=== PATIENT | female | born 1995 | race African-American/Black ===

== ENCOUNTER 2016-08-22 13:59 | Emergency (ER) | payer OTHER ==
[~2016-08-22] VITALS: Ht 156.8 cm; Wt 43.5 kg
[2016-08-22 14:04] VITALS: TEMP 36.6; Ht 156.8 cm; Wt 43.5 kg
[2016-08-22 15:31] LABS: URINE APPEARANCE CLOUDY (CLEAR); URINE COLOR DK YELLOW; URINE EPITHELIAL CELL AUTO >30 /lpf (0-5); URINE NITRITE NEG (NEG); URINE PH 5.5 (4.5-7.5); URINE SPECIFIC GRAVITY 1.037 (1.000-1.030); UROBILINOGEN NEG (NEG); ZZUR CULT IF INDIC CLEAN CATCH YES
[2016-08-22 15:33] LABS: MANUAL MICROSCOPIC REQUIRED? NO; REVIEW REQ? YES
[2016-08-22 15:34] LABS: URINE BILIRUBIN NEG (NEG)
[2016-08-22 15:45] LABS: URINE MUCUS PRESENT (NONE PRSENT)
[2016-08-22 16:11] LABS: PREG INTERNAL NEGATIVE QC NEG CLEAR BACKGROUND; PREG INTERNAL POSITIVE QC POS CONTROL LINE
[2016-08-22] MEDS ORDERED: ACYC-251 PO (16:18)
[2016-08-22 16:44] VITALS: BP 111/85; PULSE 85; O2SAT 100
--- NOTE | 2016-08-22 22:24 | EMERGENCY ROOM VISIT NOTE ---
History Report prepared by [employer]: Radha Tay Under the Supervision of: Dr. Nathanael Best D.O. First contact with patient: 14:50 Chief Complaint: VAGINAL DISCHARGE Stated Complaint: SWOLLEN VAGINA, RED FLAT BUMPS, SEVERE PAIN History of Present Illness The patient is a 21 year old female who presents to the Emergency Room with complaints of a persistent vaginal rash that began 2 days ago. The patient notes that she had developed a rash in the vaginal area 2 days after having sexual intercourse 2 week ago. She had STD testing at [facility], which was negative, although they were suspicious of herpes. Her rash resolved in about 2 days. The patient had sexual intercourse 3 days ago. Afterwards, she noticed some discomfort and pain in the area. The following day, she noticed vesicles that have since turned into ulcers around her vagina. She notes that she has increased pain with walking and when urine makes contact with the rash. The patient's sexual partner does not have any rashes or STDs. Her last menstrual period was 2 weeks ago. She is not on control. Denies abnormal vaginal discharge or bleeding. Pt denies headache, change in vision, fevers, chest pain , shortness of breath, nausea, vomiting, diarrhea, and melena. Source of History: patient Onset: 2 days ago Position: other () Quality: other (ulcerations) Timing: other (persistent) Associated Symptoms: No SOB, No chest pain, No diarrhea, No fevers, No headache, No melena, No nausea, No vomiting Review of Systems See HPI for pertinent positives & negatives. A total of 10 systems reviewed and were otherwise negative. Past Medical & Surgical Medical Problems: (1) Asthma (2) Bronchitis Social History Smoking Status: Never Smoker Marital Status: in relationship Housing Status: lives with roommate Occupation Status: [employer] student Current/Historical Medications Scheduled PRN Acyclovir (Zovirax), 800 MG PO 3 times daily PRN for vaginal lary/lesions Allergies Coded Allergies: Penicillins (Verified Allergy, Intermediate, rash, 08/22/16) Sulfa Antibiotics (Verified Allergy, Intermediate, rash, 08/22/16) Physical Exam Vital Signs Date Time Temp Pulse Resp B/P Pulse Ox O2 Delivery O2 Flow Rate FiO2 08/22/16 16:44 85 18 111/85 100 08/22/16 16:04 86 18 108/63 100 Room Air 08/22/16 14:04 36.6 93 20 120/90 96 Room Air Physical Exam GENERAL: Sitting up in bed, alert, well appearing, well nourished, no distress, non-toxic EYE EXAM: normal conjunctiva OROPHARYNX: no exudate, no erythema, lips, buccal mucosa, and tongue normal and mucous membranes are moist NECK: supple, no nuchal rigidity, no adenopathy, non-tender LUNGS: Clear to auscultation. Normal chest wall mechanics HEART: no murmurs, S1 normal and S2 normal ABDOMEN: abdomen soft, non-tender, normo-active bowel sounds, no masses, no rebound or guarding. BACK: Back is symmetrical on inspection and there is no deformity, no midline tenderness, no CVA tenderness. : External genitalia with bilateral ulcerations on the labia majora and labia minora. Normal vaginal mucosa. No obvious vaginal discharge SKIN: no rashes and no bruising UPPER EXTREMITIES: upper extremities are grossly normal. LOWER EXTREMITIES: No pitting edema. NEURO EXAM: Normal sensorium Medical Decision & Procedures Laboratory Results Test 08/22/16 00:00 08/22/16 15:15 Urine Color DK YELLOW Urine Appearance CLOUDY (CLEAR) Urine pH 5.5 (4.5-7.5) Urine Specific [place] 1.037 (1.000-1.030) Urine Protein NEG (NEG) Urine Glucose (UA) NEG (NEG) Urine Ketones 2+ (NEG) Urine Occult Blood NEG (NEG) Urine Nitrite NEG (NEG) Urine Bilirubin NEG (NEG) Urine Urobilinogen NEG (NEG) Urine Leukocyte Esterase SMALL (NEG) Urine WBC (Auto) 10-30 /hpf (0-5) Urine RBC (Auto) 0-4 /hpf (0-4) Urine Hyaline Casts (Auto) 1-5 /lpf (0-5) Urine Epithelial Cells (Auto) >30 /lpf (0-5) Urine Bacteria (Auto) NEG (NEG) Urine Renal Epithelial Cells /lpf (0-5) Urine Mucus PRESENT (NONE PRSENT) Urine Yeast (Auto) (NONE PRSENT) Urine Test NEG (NEG) Laboratory results per my review. ED Course ED COURSE: Vital signs were reviewed and showed normal vitals The patients medical record was reviewed The above diagnostic studies were performed and reviewed. ED treatments and interventions as stated above. 1453: The patient was evaluated in room A2. A complete history and physical examination was performed. 1530: I performed a pelvic exam. See findings in physical exam. 1620: Upon reevaluation, the patient is resting comfortably.I discussed my findings with the patient and she understands and agrees with the treatment plan. Based on the patients age, coexisting illnesses, exam and lab findings the decision to treat as an outpatient was made. The patient remained stable while under my care. The patient appeared well at the time of discharge. Medical Decision Differential includes rash, GC, chlamydia, herpes, HPV. Patient is a 21-year-old female who presents the ER with lower vaginal pain on the external portion of her vagina. She notes that this started initially 2 weeks ago and then resolved started back up again this past Friday. She notes that starts is a burning and then she notices red raised lesions which eventually ulcerate. Her history is consistent with herpes. Patient has no other complaints. She does have some pain with walking and when she PEs. UA was unremarkable mild leukocytes and white cells. Multiple epithelial cells. Clearly contaminant. was negative. Patient was updated regards to findings. Pelvic was otherwise unremarkable. She was given a pressure. Acyclovir to start the next outbreak. GC and chlamydia were sent. Discussed with Pt concerning signs and symptoms to watch out for. Pt was instructed to follow up with their PCP and discussed with the patient their option to return to the ED at anytime for persistent or worsening symptoms. The appropriate anticipatory guidance and out-patient management, including indications for return to the emergency department, were explained at length to the patient and understood. Impression Primary Impression: Herpes simplex of female genitalia Scribe Attestation The scribe's documentation has been prepared under my direction and personally reviewed by me in its entirety. I confirm that the note above accurately reflects all work, treatment, procedures, and medical decision making performed by me. Departure Information Dispostion Home / Self-Care Prescriptions Acyclovir (Zovirax) 800 Mg Tab 800 MG PO 3 times daily Y for vaginal lary/lesions for 2 Days, #6 TAB 1 Refill Prov: Nathanael Best, DO 08/22/16 Referrals No Doctor, Assigned (PCP) Patient Instructions Acyclovir Oral tablet, ED Herpes Simplex Virus Type 2, Herpes Dx, My [facility] Additional Instructions Please follow up with your primary care doctor or if you are a student [facility] with in the next 24 hours. Any worsening of your symptoms, please return to the ED immediately. This includes vaginal discharge , pelvic pain, fevers greater than 100.4, persistent nausea vomiting, or any other concerning signs or symptoms from your standpoint. Please take acyclovir 800 mg 3 times daily for 2 days 1 she was initially notice the discomfort with a recurrence of the lesions.
[2016-08-25 02:49] LABS: CHLAMYDIA TRACH RNA*** NOT DETECTED (NOT DETECTED); GC (NEIS GONORRHOEAE)RNA** NOT DETECTED (NOT DETECTED)
== END 2016-08-22 16:46 | disposition home or self-care (01) ==
LOC: C.EDB 14:01 → C.EDA 16:46
DX: A60.09 Herpesviral infection of other urogenital tract (principal)